=== PATIENT | female | born 1945 | race Two or more races ===

== ENCOUNTER 2023-01-18 09:36 | Emergency (ER) | payer OTHER ==
[~2023-01-18] VITALS: Ht 162.6 cm; Wt 61.2 kg
== END 2023-01-18 11:38 | disposition home or self-care (01) ==
LOC: ER 09:36
DX: M54.59 Other low back pain (principal); W18.39XA Other fall on same level, initial encounter; Y93.9 Activity, unspecified; Y92.018 Other place in single-family (private) house as the place of occurrence of the external cause; E78.00 Pure hypercholesterolemia, unspecified